=== PATIENT | male | born 1985 | race Two or more races ===

== ENCOUNTER 2017-08-24 09:04 | Emergency (ER) | payer OTHER ==
[2017-08-24 09:17] VITALS: BP 124/81
[2017-08-24] MEDS ORDERED: LIDOCAINE 1% 2 ML VIAL SUBQ STA (10:14)
[2017-08-24] MEDS ORDERED: LIDOCAINE-EPINEPH-TETRACAINE 3 ML SYRINGE TOP STA (10:14)
--- NOTE | 2017-08-24 10:16 | ED Physician Documentation ---
History of Present Illness - Stated complaint Stated Complaint: LIP LAC - Chief complaint Chief Complaint: Laceration - Additonal information Additional information: hx from pt 32 [place] [employer] male hit with a metal handle at work at [employer] and suffered a 2 cm lac to his upper L lip went to [facility] and sent to the ER for sutures tdap UTD Review of Systems Skin: reports: Laceration (s) PD PAST MEDICAL HISTORY - Past Medical History Past Medical History: Yes - Past Surgical History Past Surgical History: Yes General: Appendectomy HEENT: Tonsil/Adenoidectomy - Present Medications Home Medications: Ambulatory Orders Medication Instructions Recorded Confirmed No Known Home Medications [No 08/24/17 08/24/17 Known Home Medications] - Allergies Allergies/Adverse Reactions: Allergies Allergy/AdvReac Type Severity Reaction Status Date / Time No Known Drug Allergies Allergy Verified 08/24/17 09:14 - Social History Does the pt smoke?: Yes Smoking Status: Current some day smoker Does the pt drink ETOH?: Yes Does the pt have substance abuse?: No - Immunizations Immunizations are current?: Yes PD ED PE NORMAL - Vitals Vital signs reviewed: Yes - HEENT HEENT: Other (2 cm lac almost aprallel to edi border but crossing, no inner lip lac and no tooth damage) Results - Vitals Vitals: Vital Signs - 24 hr 08/24/17 09:14 Temperature 36.5 C Heart Rate 71 Respiratory 16 Rate Blood Pressure 124/81 H O2 Saturation 99 Oxygen O2 Source Room air Procedures - Laceration (location) lip Length in cm: 2 Wound type: Linear Neurovascular status: Sensory intact, Motor intact Anesthesia: LET ((trying to avoid injection and local swelling as aligment at edi border important) - no perfusion abn/ischemia etc - good effect) Wound Preparation: Irrigated copiously NS (by ER staff), Wound explored, To the base. No: FB identified Skin layer closure: Nylon, Interrupted, Size #-0 - enter number (6), Sutures - enter # (7) Other: Patient tolerated well Complexity: Simple (crossing edi border), Intermediate Departure - Departure Disposition: 01 Home, Self Care Clinical Impression: Facial laceration Qualifiers: Encounter type: initial encounter Qualified Code(s): S01.81XA - Laceration without foreign body of other part of head, initial encounter Condition: Good Instructions: ED Laceration Facial Sutr Tape, ED Scar Tips to Minimize Follow-Up: ROHAN Martins [Provider Group] Comments: Keep the wound clean Apply antibiotic ointment twice a day Return for suture removal in 5 days Although we washed the wound out carefully, there is always a risk for infection - if you notice any excessive redness swelling pain or discharge please come back to the ER right away Discharge Date/Time: 08/24/17 12:20
[2017-08-24] MEDS ORDERED: BACITRACIN OINT TOP STA (12:11)
== END 2017-08-24 12:20 | disposition home or self-care (01) ==
LOC: EDBD → ED 09:04
DX: S01.511A Laceration without foreign body of lip, initial encounter (principal); W22.09XA Striking against other stationary object, initial encounter; Y92.139 Unspecified place military base as the place of occurrence of the external cause; Y99.1 Military activity; F17.200 Nicotine dependence, unspecified, uncomplicated
CPT/HCPCS: 12011; 99282; 99283; A9270

== ENCOUNTER 2017-08-29 08:41 | Emergency (ER) | payer OTHER ==
[2017-08-29 08:50] VITALS: BP 117/71
--- NOTE | 2017-08-29 09:13 | ED Physician Documentation ---
PD HPI WOUND RECHECK - Stated complaint Stated Complaint: STITCH REMOVAL - Chief complaint Chief Complaint: General - Histroy obtained from History obtained from: Patient - History of Present Illness Location: Face Timing - onset: How many days ago (5) Associated symptoms: Other (no complaints) Similar symptoms before: Has not had sx before Recently seen: Emergency Dept - Additional information Additional information: 32-year-old male had a crank break at work hitting him in the face 5 days ago. He had sutures placed to the left upper lip. He is here now for suture removal. He has had no complaints. Review of Systems Constitutional: denies: Fever Eyes: denies: Decreased vision Ears: denies: Ear pain Nose: denies: Congestion Throat: denies: Sore throat Cardiac: denies: Chest pain / pressure Respiratory: denies: Dyspnea GI: denies: Abdominal Pain, Nausea, Vomiting : denies: Dysuria, Frequency Skin: reports: Laceration (s). denies: Rash Musculoskeletal: denies: Neck pain, Back pain Neurologic: denies: Generalized weakness, Focal weakness, Numbness PD PAST MEDICAL HISTORY - Past Surgical History Past Surgical History: Yes General: Appendectomy HEENT: Tonsil/Adenoidectomy - Present Medications Home Medications: Ambulatory Orders Medication Instructions Recorded Confirmed No Known Home Medications [No 08/24/17 08/24/17 Known Home Medications] - Allergies Allergies/Adverse Reactions: Allergies Allergy/AdvReac Type Severity Reaction Status Date / Time No Known Drug Allergies Allergy Verified 08/24/17 09:14 - Social History Does the pt smoke?: Yes Smoking Status: Current every day smoker Does the pt drink ETOH?: Yes Does the pt have substance abuse?: No - Immunizations Immunizations are current?: Yes PD ED PE NORMAL - Vitals Vital signs reviewed: Yes (NORAL ) - General General: Alert and oriented X 3, No acute distress, Well developed/nourished - HEENT HEENT: PERRL, EOMI, Other (There is a healing laceration to the left upper lip that appears the stated age and appears to be healing without difficulty.) - Neck Neck: Supple, no meningeal sign - Respiratory Respiratory: No respiratory distress - Neuro Neuro: Alert and oriented X 3 Eye Opening: Spontaneous Motor: Obeys Commands Verbal: Oriented GCS Score: 15 - Psych Psych: Normal mood, Normal affect Results - Vitals Vitals: Vital Signs - 24 hr 08/29/17 08:49 Temperature 36.5 C Heart Rate 84 Respiratory 16 Rate Blood Pressure 117/71 O2 Saturation 98 Oxygen O2 Source Room air Procedures - Suture/staple Removal (location) UPPER LIP Suture/staple removal: # sutures (7), No complications, Other (Steri-strips would not stick to the area). No: Dehiscence PD MEDICAL DECISION MAKING - ED course Complexity details: considered differential, d/w patient ED course: 32-year-old male with a left upper lip laceration that appears to be healing well has his sutures removed I was not able to get Steri-Strips to stick to this gentleman's upper lip at all. Departure - Departure Disposition: 01 Home, Self Care Clinical Impression: Facial laceration Qualifiers: Encounter type: subsequent encounter Qualified Code(s): S01.81XD - Laceration without foreign body of other part of head, subsequent encounter Instructions: ED Wound Check Sutr Remove No Infec Follow-Up: ROHAN Martins [Provider Group]
== END 2017-08-29 09:34 | disposition home or self-care (01) ==
LOC: ED 08:41
DX: S01.511D Laceration without foreign body of lip, subsequent encounter (principal); W22.8XXD Striking against or struck by other objects, subsequent encounter; Z48.02 Encounter for removal of sutures; F17.200 Nicotine dependence, unspecified, uncomplicated
CPT/HCPCS: 99282